=== PATIENT | female | born 1960 ===

== ENCOUNTER 2017-01-25 05:57 | Emergency (ER) | payer MEDICAID, MEDICARE ==
[~2017-01-25] VITALS: Ht 165.1 cm; Wt 61.2 kg
[2017-01-25 06:00] VITALS: BP 125/84
== END 2017-01-25 06:45 | disposition left against medical advice (07) ==
LOC: ER 06:02
DX: R07.89 Other chest pain (principal); Z53.21 Procedure and treatment not carried out due to patient leaving prior to being seen by health care provider